=== PATIENT | female | born 1980 | race Caucasian/White ===

== ENCOUNTER → 2016-09-29 | Outpatient (CLI) | payer BC | LOC: BHSO 10:59 | DX: F31.81 Bipolar II disorder (principal) | CPT/HCPCS: 90791-AI ==

== ENCOUNTER → 2016-10-26 | Outpatient (CLI) | payer BC | LOC: BHSO 08:06 | DX: F31.81 Bipolar II disorder (principal) ==

== ENCOUNTER → 2016-11-23 | Outpatient (CLI) | payer BC | LOC: BHSO 08:04 | DX: F31.81 Bipolar II disorder (principal) ==

== ENCOUNTER → 2016-12-21 | Outpatient (CLI) | payer BC | LOC: BHSO 07:56 | DX: F31.81 Bipolar II disorder (principal) ==

== ENCOUNTER → 2017-01-31 | Outpatient (CLI) | payer BC | LOC: BHSO 08:00 | DX: F31.81 Bipolar II disorder (principal) ==

== ENCOUNTER → 2017-04-04 | Outpatient (CLI) | payer BC | LOC: BHSO 08:09 | DX: F31.81 Bipolar II disorder (principal) ==

== ENCOUNTER → 2017-06-06 | Outpatient (CLI) | payer BC | LOC: BHSO 08:08 | DX: F31.81 Bipolar II disorder (principal) ==